=== PATIENT | male | born 1960 | race Caucasian/White ===

== ENCOUNTER 2022-12-15 11:47 | Emergency (ER) | payer OTHER ==
[~2022-12-15] VITALS: Ht 172 cm; Wt 81.0 kg
--- NOTE | 2022-12-15 12:03 | ED General ---
General Chief Complaint: Upper Extremity Stated Complaint: LT ARM/HAND PAIN History of Present Illness Date Seen by Provider: Dec 15, 2022 Time Seen by Provider: 12:03 Initial Comments 62-year-old male presents with left arm Paresthesia down his lower forearm and hand. He describes it as a tingling. Patient was recently started on lisinopril hydrochlorothiazide and is not sure if that is what is causing it and want to have it evaluated. Patient does report that his blood pressures were high but that they have been lower since he started on his blood pressure medication. Patient was wondering if he could take 1 pill daily instead of 2. He has no other systemic complaints Allergies and Home Medications Patient Home Medication List Home Medication List Reviewed: Yes Review of Systems Review of Systems Constitutional: no symptoms reported EENTM: no symptoms reported Respiratory: no symptoms reported Gastrointestinal: no symptoms reported Genitourinary: no symptoms reported Musculoskeletal: see HPI Skin: no symptoms reported Psychiatric/Neurological: Paresthesia Physical Exam Vital Signs Vital Signs - First Documented 12/15/22 11:51 Temp 36.8 Pulse 71 Resp 16 B/P (MAP) 181/106 (131) Pulse Ox 99 O2 Delivery Room Air Capillary Refill : Height, Weight, BMI Height: '" Weight: lbs. oz. 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 Is been going on and off for couple days. This time patient's physical exam and neuro exam shows no acute findings. I did discuss with him that it is difficult to say if his new prescription was causing the paresthesias. Did recommend he follow-up with a primary care provider if he would like to cut his dose in half and make them aware that. Patient agrees to contact his primary care provider. Patient is stable and discharged home Departure Impression Primary Impression: Paresthesia of left arm Disposition: HOME, SELF-CARE Condition: Stable Departure-Patient Inst. Referrals: WILL MEMBRENO APRN (PCP) Primary Care Physician [facility] (Family) Primary Care Physician Patient Instructions: Paresthesia (DC) Add. Discharge Instructions: Please let Dr. Gaitan know if you decide to use take only 1 lisinopril daily instead of 2. Please monitor your blood pressures. Follow-up with Dr. Gaitan in 10 days for recheck. All discharge instructions reviewed with patient and/or family. Voiced understanding. KEVIN ROBLEDO DO Dec 15, 2022 12:03
[2022-12-15 12:48] VITALS: BP 181/106
== END 2022-12-15 12:48 | disposition home or self-care (01) ==
LOC: ER FS 11:49
DX: R20.2 Paresthesia of skin (principal); I10 Essential (primary) hypertension; Z79.899 Other long term (current) drug therapy
CPT/HCPCS: 99281

== ENCOUNTER 2022-12-22 12:22 | Emergency (ER) | payer SELFPAY ==
[~2022-12-22] VITALS: Ht 172.7 cm; Wt 75.9 kg
--- NOTE | 2022-12-22 12:35 | ED General ---
General Stated Complaint: CHEST PAIN Source of Information: Patient Exam Limitations: No Limitations History of Present Illness Date Seen by Provider: Dec 22, 2022 Time Seen by Provider: 12:22 Initial Comments Patient is a 62-year-old male who presents to the emergency department today for left arm tingling sensation. He states this has been going on for several months. He cannot really reiterate why he came in today or what changed however when going through review of systems he does say that his chest does not feel right. He does not have any pain, tightness or discomfort just states "it does not feel right." He denies any fevers chills or cough. No cardiac history. Notably he was seen here on December 15 for the paresthesia in his left arm as well and he tells me he has been seen by his primary doctor several times. He states his blood pressures have been running high with no recent changes in his medications. All other systems reviewed and negative except documented per HPI. Voice recognition software was used to help create this chart Allergies and Home Medications Allergies Coded Allergies: No Known Drug Allergies (Unverified , 12/22/22) Patient Home Medication List Home Medication List Reviewed: Yes Review of Systems Review of Systems Constitutional: no symptoms reported Past Gufkacd-Mjhwsy-Obnrcn Hx Patient Social History Tobacco Use?: No Use of E-Cig and/or Vaping dev: No Substance use?: No Alcohol Use?: No Past Medical History Surgery/Hospitalization HX: HTN Family Medical History Reviewed Nursing Family Hx No Pertinent Family Hx Physical Exam Vital Signs Vital Signs - First Documented 12/22/22 12:26 Temp 36.6 Pulse 82 Resp 14 B/P (MAP) 198/108 (138) Pulse Ox 99 O2 Delivery Room Air Capillary Refill : Height, Weight, BMI Height: '" Weight: lbs. oz. kg; 27.00 BMI Method: General Appearance: No Apparent Distress, WD/WN HEENT: PERRL/EOMI, TMs Normal, Normal ENT Inspection, Pharynx Normal Neck: Full Range of Motion, Normal Inspection, Non Tender, Supple Respiratory: Chest Non Tender, Lungs Clear, Normal Breath Sounds, No Accessory Muscle Use, No Respiratory Distress Cardiovascular: Regular Rate, Rhythm, No Murmur, Normal Peripheral Pulses, Other (Hypertension) Gastrointestinal: Normal Bowel Sounds, No Organomegaly, No Pulsatile Mass, Non Tender, Soft Extremity: Normal Capillary Refill, Normal Inspection, Normal Range of Motion, Non Tender, No Calf Tenderness Neurologic/Psychiatric: Alert, Oriented x3, No Motor/Sensory Deficits, Normal Mood/Affect, 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 Skin: Normal Color, Warm/Dry Progress/Results/Core Measures Suspected Sepsis SIRS Temperature: Pulse: Respiratory Rate: Laboratory Tests 12/22/22 12:34: White Blood Count 9.2 Blood Pressure / Mean: Laboratory Tests 12/22/22 12:34: Creatinine 1.17, Platelet Count 331, Total Bilirubin 0.6 Results/Orders Lab Results Laboratory Tests Test 12/22/22 12:34 Range/Units White Blood Count 9.2 4.3-11.0 10^3/uL Red Blood Count 5.18 4.30-5.52 10^6/uL Hemoglobin 15.4 13.3-17.7 g/dL Hematocrit 44 40-54 % Mean Corpuscular Volume 85 80-99 fL Mean Corpuscular Hemoglobin 30 25-34 pg Mean Corpuscular Hemoglobin Concent 35 32-36 g/dL Red Cell Distribution Width 12.0 10.0-14.5 % Platelet Count 331 130-400 10^3/uL Mean Platelet Volume 9.0 9.0-12.2 fL Immature Granulocyte % (Auto) 0 % Neutrophils (%) (Auto) 59 42-75 % Lymphocytes (%) (Auto) 24 12-44 % Monocytes (%) (Auto) 14 H 0-12 % Eosinophils (%) (Auto) 2 0-10 % Basophils (%) (Auto) 0 0-10 % Neutrophils # (Auto) 5.4 1.8-7.8 10^3/uL Lymphocytes # (Auto) 2.2 1.0-4.0 10^3/uL Monocytes # (Auto) 1.3 H 0.0-1.0 10^3/uL Eosinophils # (Auto) 0.2 0.0-0.3 10^3/uL Basophils # (Auto) 0.0 0.0-0.1 10^3/uL Immature Granulocyte # (Auto) 0.0 0.0-0.1 10^3/uL Sodium Level 133 L 135-145 MMOL/L Potassium Level 3.4 L 3.6-5.0 MMOL/L Chloride Level 95 L 98-107 MMOL/L Carbon Dioxide Level 27 21-32 MMOL/L Anion Gap 11 5-14 MMOL/L Blood Urea Nitrogen 17 7-18 MG/DL Creatinine 1.17 0.60-1.30 MG/DL Estimat Glomerular Filtration Rate 70 BUN/Creatinine Ratio 15 Glucose Level 100 70-105 MG/DL Calcium Level 9.5 8.5-10.1 MG/DL Corrected Calcium 8.5-10.1 MG/DL Total Bilirubin 0.6 0.1-1.0 MG/DL Aspartate Amino Transf (AST/SGOT) 17 5-34 U/L Alanine Aminotransferase (ALT/SGPT) 21 0-55 U/L Alkaline Phosphatase 89 40-136 U/L Troponin I < 0.30 <0.30 NG/ML Total Protein 7.7 6.4-8.2 GM/DL Albumin 4.7 H 3.2-4.5 GM/DL My Orders Orders - TATECARLOS LAST DO Cbc With Automated Diff (12/22/22 12:31) Chest 1 View Ap/Pa Only (12/22/22 12:31) Ekg Tracing (12/22/22 12:31) Comprehensive Metabolic Panel (12/22/22 12:31) Monitor-Rhythm Ecg Trace Only (12/22/22 12:31) Aspirin Chewable Tablet (Baby Aspirin Ch (12/22/22 12:45) Nitroglycerin 0.4 Mg Btl 25's (Nitrostat (12/22/22 12:45) Ed Iv/Invasive Line Start (12/22/22 12:31) Troponin I Fs (12/22/22 12:31) Medications Given in ED Current Medications Medications Dose Ordered Sig/Pardeep Route Start Time Stop Time Status Last Admin Dose Admin Aspirin 324 mg ONCE ONCE PO 12/22/22 12:45 12/22/22 12:46 DC 12/22/22 12:38 324 MG Nitroglycerin 0.4 mg UD PRN SL 12/22/22 12:45 12/22/22 12:38 0.4 MG Vital Signs/I&O 12/22/22 12:26 Temp 36.6 Pulse 82 Resp 14 B/P (MAP) 198/108 (138) Pulse Ox 99 O2 Delivery Room Air Capillary Refill : ECG Comment Independent review shows sinus rhythm 70 bpm. Normal intervals. Left axis deviation. No ST or T wave abnormalities. No ectopy no STEMI. Departure Communication (Admissions) Patient is hemodynamically stable. He has some vague chest discomfort type symptoms. Cardiac work-up was negative with negative troponin, EKG. He otherwise was hypertensive. This improved with nitroglycerin. His chest discomfort has also improved. I do not think this is likely related to cardiac etiology at this time. He has chronic left arm paresthesias which are unchanged. No focal neurologic deficits, no indication for CVA, TIA, etc. Has mild hypokalemia. Labs otherwise unremarkable. He is discharged in stable condition with close primary care follow-up and supportive care. Impression Primary Impression: Paresthesia of left arm Additional Impressions: Chest discomfort Hypertension Qualified Codes: I10 - Essential (primary) hypertension Disposition: HOME, SELF-CARE Condition: Stable Departure-Patient Inst. Referrals: WILL MEMBRENO APRN (PCP) Primary Care Physician [facility] (Family) Primary Care Physician Patient Instructions: Paresthesia (DC), Chest Pain That Is Not Caused by the Heart (DC) Add. Discharge Instructions: No emergent medical conditions are identified. Continue home medications. Keep a log of blood pressures and take them to your primary doctor to see if your medicines need adjusted. Return to the emergency department for any severe concerns. Follow-up with your primary doctor for any nonemergent needs. CARLOS YBARRA DO Dec 22, 2022 12:35
[2022-12-22 12:40] LABS: BASOPHILS % (AUTO) 0 % (0-10); EOSINOPHILS # (AUTO) 0.2 10^3/uL (0.0-0.3); EOSINOPHILS % (AUTO) 2 % (0-10); HEMATOCRIT 44 % (40-54); HEMOGLOBIN 15.4 g/dL (13.3-17.7); LYMPHOCYTES # (AUTO) 2.2 10^3/uL (1.0-4.0); LYMPHOCYTES % (AUTO) 24 % (12-44); MEAN CORPUSCULAR HEMOGLOBIN 30 pg (25-34); MEAN CORPUSCULAR HGB CONC 35 g/dL (32-36); MEAN CORPUSCULAR VOLUME 85 fL (80-99); MONOCYTES # (AUTO) 1.3 10^3/uL (0.0-1.0); MONOCYTES % (AUTO) 14 % (0-12); NEUTROPHILS # (AUTO) 5.4 10^3/uL (1.8-7.8); NEUTROPHILS % (AUTO) 59 % (42-75); PLATELET COUNT 331 10^3/uL (130-400); WHITE BLOOD COUNT 9.2 10^3/uL (4.3-11.0)
[2022-12-22] MEDS ORDERED: ASPIRIN 81 MG CHEW (CHILDREN'S ASA) PO ONE (12:45)
[2022-12-22] MEDS ORDERED: NITROGLYCERIN 0.4 MG SL TABS BTL 25'S SL PRN (12:45)
--- NOTE | 2022-12-22 12:50 | Diagnostic Imaging Report ---
INDICATION: Chest pain. TECHNIQUE: Single view chest 12:38 PM. CORRELATION STUDY: None FINDINGS: The heart size, and pulmonary vascularity are within normal limits. Likely tortuous course of the descending thoracic aorta. The lungs are clear with no consolidating infiltrate. Minimal discoid atelectasis and/or scarring left lung base. There is no significant effusion or pneumothorax. IMPRESSION: 1. Negative appearing single view chest. Dictated by: Dictated on workstation # [id number]
[2022-12-22 13:05] LABS: BUN/CREATININE RATIO 15; CARBON DIOXIDE 27 MMOL/L (21-32); CHLORIDE 95 MMOL/L (98-107); CREATININE SERUM 1.17 MG/DL (0.60-1.30); GFR ESTIMATED 70; GLUCOSE 100 MG/DL (70-105); POTASSIUM 3.4 MMOL/L (3.6-5.0); SODIUM 133 MMOL/L (135-145)
[2022-12-22 13:06] LABS: ALANINE AMINOTRANSFERASE 21 U/L (0-55); ALBUMIN 4.7 GM/DL (3.2-4.5); ALKALINE PHOSPHATASE 89 U/L (40-136); BILIRUBIN,TOTAL 0.6 MG/DL (0.1-1.0); CALCIUM 9.5 MG/DL (8.5-10.1); TOTAL PROTEIN 7.7 GM/DL (6.4-8.2)
[2022-12-22 13:14] VITALS: BP 139/89
== END 2022-12-22 13:14 | disposition home or self-care (01) ==
LOC: EDUNIT# 12:22 → ER FS 12:23
DX: R20.2 Paresthesia of skin (principal); I10 Essential (primary) hypertension; E87.6 Hypokalemia
CPT/HCPCS: 36415; 71045; 80053; 84484; 85025; 93005; 93041